=== PATIENT | female | born 1960 | race Asian ===

== ENCOUNTER 2024-11-08 11:59 | Outpatient (AMB) | payer OTHER, SELFPAY ==
--- NOTE | 2024-11-08 12:11 | A.OFFPC_ITS ---
Vital Signs 11/08/24 12:20 Height 5 ft 2 in Weight 167 lb BMI 30.5 BP 135/68 Blood Pressure Location Lt brachial Position Sitting Respiration 16 Pulse 95 Pulse Source Pulse Oximeter Temp 98.1 F Temp Source Oral Pulse Oximetry (%) 100 Oxygen Delivery Method Room Air Intake Visit Reasons: est care/requesting pe Intake Note: patient here for new patient visit Clinical Laboratory Technologist Required: Yes Clinical Laboratory Technologist Language: Brigitte Clinical Laboratory Technologist Name: [id number] Is last menstrual period known: No Post menopausal: No Patient : No Allergies No Known Allergies Allergy (Verified 11/08/24 12:30) Medication List - Last Reviewed 11/08/24 by Zoya Sena MA anastrozole 1 mg PO DAILY hydrochlorothiazide 25 mg PO DAILY levothyroxine (Tirosint) 112 mcg PO DAILY lisinopril 20 mg PO DAILY multivitamin (Daily-Kate tablet) 1 tab PO DAILY omega 7-fhb-ujr-fish oil 100-160-1,000 mg (Fish Oil) 2 caps PO DAILY Tobacco use date assessed: 11/08/24 Fall risk assessment: No Falls in past year Last assessed Fall Risk: 11/08/24 Dental Screening Dental Screen Date: 11/08/24 Did you have a dental visit in the last 12 months?: Yes Did you have a dental problem in the last 6 months where you did not have access to dental care?: No Was dental information given to patient?: Patient has dentist HPI HPI Comments History of Present Illness Details 64-year-old female Brigitte speaking, accom panied by her , presents to establish care. Prior PCP? - [facility], [facility] Last office visit - 07/2024 Last CPE/labs - 04/2023 Acute issue(s) - Reports bilateral hearing loss. Hearin g aid recommended by ENT but she could not afford them Past Medical History - Hypertension, hypothyroidism, left dorota ast cancer, no teeth to lower gum (wear denture), bilateral hearing loss Surgical History - Left breast surgery ([facility] 2 022) Family History - None Social History - Nonsmoker. Does not vape. Does not roberta blankenship. Denies recreational drug use - Has been making healthy dietary choice s (vegetarian), Walks regularly. Generally sleep well Health maintenance - Last eye exam was a year ago with Dr. Cruz. She will will follow up with Dr. Cruz in 04/2025. Encouraged sign a release for her PCP to obtain ophthalmology record - Last dental visit was 06/2024. She will find a new dentist for inplant to lower gum - Last Tdap was 3 years ago. Record not current available - She notes that she is up-to-date on th e flu vaccine - She is up-to-date on the shingles vacc ine. Record not currently available - She has not been vaccinated for PNA. E ncouraged to get vaccinated for for PNA at a local pharmacy - She has never had a Pap smear test and declines referral for Pap smear test. - Last mammogram was in 08/01/2024: Hetero geneously dense, Recommended mammogram in 6 months. Mammogram ordered - She has never had a colonoscopy. Decl reji colonoscopy. Cologuard ordered - She has never had a dexat dexa scan. D exa scan ordered Specialists - None [facility] Surgical History (Updated 11/08/24 @ 12:25 by Zoya Sena MA) History of breast surgery Social History Housing: House Patient Tobacco Use Status: Never used Tobacco e-Cigarette/Vaping Use: Never Used Second Hand Smoke Exposure: No service: No Current occupational status: unemployed Current occupational exposures/hazards: No Cognitive needs: No Hearing needs: No Vision needs: Yes Questionnaire PHQ-9 Over the last 2 weeks, how often have you been bothered by any of the following problems? 1. Little interest or pleasure in doing things: not at all 2. Feeling down, depressed, or hopeless: several days 3. Trouble falling or staying asleep, or sleeping too much: several days 4. Feeling tired or having little energy: several days 5. Poor appetite or overeating: several days 6. Feeling bad about yourself - or that you are a failure or have let yourself or your family down: several days 7. Trouble concentrating on things, such as reading the newspaper or watching television: nearly every day 8. Moving or speaking so slowly that other people could have noticed. Or the opposite - being so fidgety or restless that you have been moving around a lot more than usual: several days 9. Thoughts that you would be better off or of hurting yourself in some way: several days Total score: 10 Depression Screening Interpretation: Positive Depression Screening Done: Yes 24930 - PHQ-9 Billing: Yes Source: Developed by Drs. Benjamin Ruiz, Adriane Rosenthal, Aneudy Styles and colleagues, with an educational jennifer from [employer]. Thrive Questionnaire Date Thrive assessed: 11/08/24 I am a: Patient What is your living situation today?: I have a steady place to live Within the past 12 months, did the food you bought not last and you didn't have the money to get more?: Sometimes True Within the past 12 months, did you worry whether your food would run out before you got money to buy more?: Sometimes True Do you have trouble paying for medicines?: Yes Do you have trouble getting transportation to medical appointments?: Yes Do you have trouble paying your heating and electricity bill?: Yes Do you have trouble taking care of your child, family member or friend?: Yes Do you have trouble with day-to-day activities such as bathing, preparing meals, shopping, managing finances, etc.?: Yes Are you currently unemployed and looking for a job?: Yes Are you interested in more education?: No Please select the resources that you would like help with: Food, Paying for medicine, Utilities, Care for elder or disabled, Daily support and Job search/training THRIVE Score: 4 AUDIT C Alcohol Use Questionnaire (AUDIT-C) 1. How often do you have a drink containing alcohol?: Never 3. How often do you have six or more drinks on one occasion?: Never Total Score: 0 Score Reviewed/Action Taken: Yes MADI-7 AMB Questionnaire MADI-7 Date MADI - 7 assessed: 11/08/24 Feeling nervous, anxious, or on edge: 1 = Several days Not being able to stop or control worryin = Several days Worrying too much about different things: 1 = Several days Trouble relaxin = Several days Being so restless that it is hard to sit still: 1 = Several days Becoming easily annoyed or irritable: 1 = Several days Feeling afraid as if something awful might happen: 1 = Several days Total MADI-7 score (0-4 normal; 5-9 mild; 10-14 moderate; 15-21 severe): 7 Source: Developed by Drs. Benjamin Ruiz, Adriane Rosenthal, Aneudy Styles and colleagues, with an educational jennifer from [employer] MADI-7 Assessment Billing MADI-7 Assessment Tool: MADI-7 Assessment 10374 Review of Systems Const Details: Denies chills, Denies fatigue, Denies fever(s), Denies headache(s) and Denies weakness HEENT On reports bilateral hearing loss, Denies change in vision, Denies dizziness, Denies headache(s), Denies nasal congestion, Denies sinus pain, Denies sinus pressure and Denies sore throat Card Denies chest pain, Denies lightheadedness, Denies dyspnea and Denies other (palpitations) Resp Denies cough, Denies dyspnea and Denies wheezing GI Denies abdominal pain, Denies melena, Denies hematochezia, Denies change in bowel habits, Denies dyspepsia and Denies nausea Denies hematuria and Denies dysuria Musc Denies abnormal gait, Denies myalgias, Denies arthralgias, Denies numbness and Denies tingling Skin/Breast Denies rash, Denies unusual bruising and Denies wounds Neuro Denies abnormal gait, Denies dizziness, Denies headache(s), Denies memory loss, Denies numbness, Denies Sensory deficit (Neuro), Denies tingling and Denies weakness Psych Denies anxiety, Denies depression and Denies memory loss Endo Denies cold intolerance, Denies fatigue, Denies heat intolerance, Denies polydipsia and Denies polyuria Glenn/Lymph Denies easy bleeding and Denies easy bruising Aller/Immun Denies wheezing Physical exam (Primary Care) Vital Signs: Last Vital Signs Temp 98.1 F 11/08/24 12:20 Pulse 95 11/08/24 12:20 Resp 16 11/08/24 12:20 BP 135/68 11/08/24 12:20 Pulse Ox 100 11/08/24 12:20 Oxygen Delivery Method Room Air 11/08/24 12:20 BMI result Body Mass Index 30.5 Tobacco/Smoking Status: Tobacco use Status Tobacco use date assessed 11/08/24 11/08/24 12:23 Patient Tobacco Use Status Never used Tobacco 11/08/24 12:23 e-Cigarette/Vaping Use Never Used 11/08/24 12:23 PHQ-9: PHQ-9 Score PHQ-9: Total score 10 11/08/24 13:16 Depression Screening Interpretation: Positive Thrive Assessment: Date of Thrive Assessment Date Thrive assessed 11/08/24 11/08/24 12:38 Const Other: General: no acute distress, well developed, alert and awake Nutritional Appearance: well nourished Orientation/consciousness: patient oriented x3 HENWI Head: Yes normocephalic and Yes atraumatic Ears: Diminished hearing bilaterally. Impacted cerumen to both ear, occluding the TMs General nose exam: Normal external nose present and Normal nares present Mouth: Normal oral and palatal mucosa present and moist mucous membranes Teeth and gingiva: dentition normal. No teeth to lower gum, wears full bottom denture Throat: Yes oropharynx normal Eyes Pupils: Equal, round and reactive pupils present and Pupil accommodation reflex normal EOM: EOMs intact bilaterally Neck Neck: Yes normal visual inspection, Yes no lymphadenopathy and Yes trachea midline Thyroid: Thyroid normal Carotids: no bruits Lymphatic: no lymphadenopathy noted Chest Chest palpation & inspection: normal inspection of the chest Resp Effort & Inspection: normal respiratory effort Auscultation: clear to auscultation bilaterally Cardio Rate: regular rate Rhythm: regular rhythm Heart sounds: S1 normal heart sound present, S2 normal heart sound present, no gallops, no murmurs and no rubs Bruits: no abdominal aortic bruits and no carotid bruits GI Palpation (GI): No Abdominal aortic bruit present, Soft to palpation, nontender, No hepatosplenomegaly present and No Rebound tenderness present Auscultation: normal bowel sounds General: Yes no CVA tenderness Back/Spine/Pelvis Back: no CVA tenderness Cervical Spine: cervical ROM normal and No Cervical spine tenderness Thoracic/Lumbar Spine: thoraco-lumbar ROM normal, No pain with thoraco-lumbar ROM, No thoracic spinal tenderness and No lumbar spinal tenderness Skin General: warm and dry. Normal skin color. Normal skin turgor Lesions: no lesions Rashes: no rashes Trauma: no lacerations or abrasions Wounds: no wounds Nails: normal Neuro General: patient oriented x3, gait normal and CN's II-XI intact bilaterally Cranial nerves: Yes Equal, round and reactive pupils present Cognition (Neuro): normal cognition Gait exam (Neuro): Normal gait present Motor exam (neuro): 5/5 motor strength present throughout Sensory Exam: No Sensory deficit (Neuro) Deep tendon reflexes (DTR's): Right patellar reflex intensity grade: 2+ and Left patellar reflex intensity grade: 2+ Extrem General: Yes normal to inspection, No edema and No calf tenderness Psych Appearance: grossly normal Affect: normal affect Attitude: cooperative Thought process: Normal thought process present Coding Level of Care Code New Pt Level 4 (84082) New Pt Prev Care >65yr (35718) Diagnoses Normal physical examination, routine Z00.00 Hypertension I10 Hypothyroidism E03.9 Hearing loss of both ears H91.93 Impacted cerumen of both ears H61.23 Breast cancer screening by mammogram Z12.31 Colon cancer screening Z12.11 Age-related osteoporosis without current pathological fracture M81.0 Laboratory tests ordered as part of a complete physical exam (CPE) Z00.00 Additional Codes MADI-7 Assessment Billing - MADI-7 Assessment Tool: MADI-7 Assessment 81572 ([id number]) PHQ-9 - 04074 - PHQ-9 Billing: Yes ([id number]) Time Spent (min) 65 Assessment & Plan Assessment & Plan (1) Normal physical examination, routine: Code(s): Z00.00 - Encounter for general adult medical examination without abnormal findings Category: Medical Plan: No significant functional limitation. Continue current treatment regimen. Healthy diet and routine exercise encouraged. Perform lab work and follow-up for labs review and bilateral ear lavage. Return sooner with symptoms or concerns. Verbalized understanding and agreed with the plan. (2) Hypertension: Code(s): I10 - Essential (primary) hypertension Category: Medical Plan: Blood pressure is 134/68, within goal of less than 140/90. Continue current treatment regimen. Low-sodium diet encouraged. Blood pressure monitor/cuff ordered and encouraged to monitor blood pressure. Will continue to monitor. Verbalized understanding and agreed with the plan. (3) Hypothyroidism: Code(s): E03.9 - Hypothyroidism, unspecified Category: Medical Plan: Continue current treatment regimen. Will check TSH/T4 and make changes as needed. Verbalized understanding and agreed with the plan. (4) Hearing loss of both ears: Code(s): H91.93 - Unspecified hearing loss, bilateral Category: Medical Plan: Reports bilateral hearing loss. Hearing aid recommended by ENT but she could not afford them. Diminished hearing bilaterally. Impacted cerumen to both ear, occluding the TMs. Debrox ordered; advised to use as prescribed. Start using 4 days before next visit. Follow-up for bilateral ear lavage in 2 weeks. May refer to audiology if continued hearing loss following cerumen removal. Verbalized understanding and agreed with the plan. (5) Impacted cerumen of both ears: Code(s): H61.23 - Impacted cerumen, bilateral Category: Medical Plan: Plan as above. (6) Breast cancer screening by mammogram: Code(s): Z12.31 - Encounter for screening mammogram for malignant neoplasm of breast Category: Medical Plan: She has history of cancer of the left breast and on anastrozole 1 mg daily. Last mammogram was in 08/01/2024: Heterogeneously dense, Recommended mammogram in 6 months. Mammogram ordered. (7) Colon cancer screening: Code(s): Z12.11 - Encounter for screening for malignant neoplasm of colon Category: Medical Plan: She has never had a colonoscopy. Declines colonoscopy. Cologuard ordered. (8) Age-related osteoporosis without current pathological fracture: Code(s): M81.0 - Age-related osteoporosis without current pathological fracture Category: Medical Plan: She has never had a dexat dexa scan. Dexa scan ordered. (9) Laboratory tests ordered as part of a complete physical exam (CPE): Code(s): Z00.00 - Encounter for general adult medical examination without abnormal findings Category: Medical Plan: Fasting labs ordered as part of a complete physical exam. Advised to fast for at least 10 hours before getting labs drawn. May drink water Verbalized understanding and agreed with treatment plan. Plan Total time for this visit was 65 minutes. This include 50 minutes with patient, doing complete physical exam and chronic disease management/treatment, and 15 minutes reviewing, coordinating plan of care, and documenting. Orders: Orders Complete Blood Count Auto Diff Today Z00.00 - Encounter for general adult medical examination without abnormal findings Comprehensive [place]sey. Panel Fast Today Z00.00 - Encounter for general adult medical examination without abnormal findings Lipid Panel Today Z00.00 - Encounter for general adult medical examination without abnormal findings Microalbumin, Random (w Creat) Today Z00.00 - Encounter for general adult medical examination without abnormal findings Vitamin D 25-OH Total Today Z00.00 - Encounter for general adult medical examination without abnormal findings MM screening mammo BI 3 Months Z12.31 - Encounter for screening mammogram for malignant neoplasm of breast TSH reflex Free T4 Today Z00.00 - Encounter for general adult medical examination without abnormal findings UA CC w/rflx Micro + Cult Today Z00.00 - Encounter for general adult medical examination without abnormal findings XR DEXA axial skeleton Today M81.0 - Age-related osteoporosis without current pathological fracture Referrals Cologuard Test Z12.11 - Encounter for screening for malignant neoplasm of colon Medications: New carbamide peroxide 6.5% (Debrox) Instill in both ears 5 drps otic (ears) DAILY 15 mL 0RF 4 days miscellaneous medical supply 1 large BP monitor/cuff 1 ea 0RF I10 - Essential (primary) hypertension
[2024-11-08 12:20] VITALS: BP 135/68; PULSE 95; RESP 16; TEMP 36.7; O2SAT 100; BMI 30.5
== END 2024-11-08 13:41 | disposition home or self-care (01) ==
LOC: HO.HMCFM 11:59
PROVIDERS: PCP Nurse Practitioner Family; Visit Provider Nurse Practitioner Family
DX: Z00.00 Encounter for general adult medical examination without abnormal findings (principal); H61.23 Impacted cerumen, bilateral; I10 Essential (primary) hypertension; M81.0 Age-related osteoporosis without current pathological fracture; E03.9 Hypothyroidism, unspecified; Z12.31 Encounter for screening mammogram for malignant neoplasm of breast; Z12.11 Encounter for screening for malignant neoplasm of colon

== ENCOUNTER → 2024-11-08 11:59 | Outpatient (BNVA) | payer OTHER, SELFPAY | PROVIDERS: PCP Nurse Practitioner Family; Visit Provider Nurse Practitioner Family | DX: Z00.00 Encounter for general adult medical examination without abnormal findings (principal); I10 Essential (primary) hypertension; E03.9 Hypothyroidism, unspecified; H61.23 Impacted cerumen, bilateral; M81.0 Age-related osteoporosis without current pathological fracture | CPT/HCPCS: 96127; 99202; 99387 ==

== ENCOUNTER 2024-11-11 07:31 | Outpatient (REF) | payer OTHER, SELFPAY ==
[2024-11-11 11:26] LABS: Appearance Urine Clear; Glucose Urine UA Negative (Negative); PH 8.5 (5.0-9.0); Specific Gravity - Urine 1.015 (1.005-1.025); UMIC TRIGGER UACC YES
[2024-11-11 11:35] LABS: UACC Culture Trigger YES
[2024-11-11 11:48] LABS: MANUAL DIFF FLAG NO
[2024-11-11 11:51] LABS: Hematocrit 36.2 % (37.0-47.0); Hemoglobin 12.2 g/dl (12.0-16.0); Imm Gran Abs Auto 0.04 X10*3/uL (0.00-0.03); Imm Gran Pct Auto 0.5 % (0.0-0.4); Lymphocytes Absolute Auto 2.1 X10*3/uL (1.2-4.9); Mean Corpuscular HGB Conc 33.7 g/dl (31.0-35.0); Mean Corpuscular Hemoglobin 27.8 pg (27.0-33.0); Mean Corpuscular Volume 82.5 fL (80.0-98.0); NRBC Abs Auto 0.000 X10*3/uL (0.0-0.012); NRBC Pct Auto 0.0 /100WBC (0.0-0.2); Platelet Count 273 X10*3/uL (160-400); Red Blood Count 4.39 X10*6/uL (4.20-5.50); White Blood Count 7.8 X10*3/uL (4.8-10.8)
[2024-11-11 12:16] LABS: Microalbum/Creatinine Ratio Ur 7.0 ug/mg cr (<30)
[2024-11-11 13:07] LABS: Alanine Aminotransferase 18 U/L (0-31); Albumin Level 4.3 g/dL (3.5-5.0); Alkaline Phosphatase 98 U/L (39-117); Anion Gap 13 (12-20); Aspartate Amino Transferase 22 U/L (5-31); Blood Urea Nitrogen 14 mg/dL (9-16); Calcium 9.4 mg/dL (8.4-10.2); Carbon Dioxide 29 mmol/L (22-29); Chloride 104 mmol/L (96-108); Cholesterol 212 mg/dL (<200); Estimated Glomerular Filt Rate > 60; HDL Cholesterol 63 mg/dL (>40); Potassium 4.6 mmol/L (3.3-5.1); Sodium 141 mmol/L (135-145); Total Protein 7.2 g/dL (6.5-8.0); Triglycerides 88 mg/dL (<150)
== END 2024-11-11 07:32 | disposition home or self-care (01) ==
LOC: HO.WFDLDS 07:31
PROVIDERS: Visit Provider Nurse Practitioner Family
DX: Z00.00 Encounter for general adult medical examination without abnormal findings (principal); Z13.6 Encounter for screening for cardiovascular disorders
CPT/HCPCS: 36415; 80053; 80061; 81001; 82043; 82306; 82570; 84443; 85025; 87086

== ENCOUNTER 2024-11-26 12:57 | Outpatient (AMB) | payer OTHER, SELFPAY ==
--- NOTE | 2024-11-26 13:08 | MHC.PC.OV ---
Vital Signs 11/26/24 13:17 Height 5 ft 2 in Weight 166 lb 4 oz BMI 30.4 BP 139/64 Blood Pressure Location Lt brachial Position Sitting Respiration 16 Pulse 88 Pulse Source Pulse Oximeter Temp 98.7 F Temp Source Oral Pulse Oximetry (%) 100 Oxygen Delivery Method Room Air Intake Visit Reasons: 2 wks bilat ear lavage and labs review Intake Note: patient here for 2wks bilat ear lavage and lab review Senior Financial Accountant Required: Yes Senior Financial Accountant Language: Vale Senior Financial Accountant Name: nilay [id number] Information Interpreted: non-clinical & clinical Is last menstrual period known: No Post menopausal: No Patient : No Allergies No Known Allergies Allergy (Verified 11/26/24 13:51) Medication List - Last Reconciled 11/26/24 by Anabel Mackenzie CNP anastrozole 1 mg PO DAILY carbamide peroxide 6.5% (Debrox) 5 drps otic (ears) DAILY 4 days hydrochlorothiazide 25 mg PO DAILY levothyroxine (Tirosint) 112 mcg PO DAILY lisinopril 20 mg PO DAILY miscellaneous medical supply 1 large BP monitor/cuff multivitamin (Daily-Kate tablet) 1 tab PO DAILY omega 2-dyd-vub-fish oil 100-160-1,000 mg (Fish Oil) 2 caps PO DAILY Tobacco use date assessed: 11/08/24 Fall risk assessment: No Falls in past year Last assessed Fall Risk: 11/26/24 Dental Screening Dental Screen Date: 11/26/24 Did you have a dental visit in the last 12 months?: Yes Did you have a dental problem in the last 6 months where you did not have access to dental care?: No Was dental information given to patient?: Patient has dentist HPI HPI Comments History of Present Illness Details 64-year-old Brigitte speaking female, accompanied by her , presents for bilateral ear lavage and recent labs review follow-up. She admits to taking her medications as prescribed without adverse reactions. She notes that she has been making healthy lifestyle changes. No acute symptoms at this time. 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 [facility] Surgical History (Updated 11/08/24 @ 12:25 by Zoya Sena MA) History of breast surgery Social History Housing: House Patient Tobacco Use Status: Never used Tobacco e-Cigarette/Vaping Use: Never Used Second Hand Smoke Exposure: No service: No Current occupational status: unemployed Current occupational exposures/hazards: No Cognitive needs: No Hearing needs: No Vision needs: Yes Questionnaire Thrive Questionnaire Date Thrive assessed: 11/20/24 I am a: Patient What is your living situation today?: I have a steady place to live Within the past 12 months, did the food you bought not last and you didn't have the money to get more?: Often true Within the past 12 months, did you worry whether your food would run out before you got money to buy more?: Sometimes True Do you have trouble paying for medicines?: I choose not to answer this question Do you have trouble getting transportation to medical appointments?: I choose not to answer this question Do you have trouble paying your heating and electricity bill?: I choose not to answer this question Do you have trouble taking care of your child, family member or friend?: Yes Do you have trouble with day-to-day activities such as bathing, preparing meals, shopping, managing finances, etc.?: I choose not to answer this question Are you currently unemployed and looking for a job?: I choose not to answer this question Are you interested in more education?: No THRIVE Score: 2 AUDIT C Alcohol Use Questionnaire (AUDIT-C) 1. How often do you have a drink containing alcohol?: Never Total Score: 0 MADI-7 AMB Questionnaire MADI-7 Date MADI - 7 assessed: 11/08/24 Source: Developed by Drs. Benjamin Ruiz, Adriane Rosenthal, Aneudy Styles and colleagues, with an educational jennifer from [employer] Review of Systems Const Details: Const Denies chills, Denies fatigue, Denies fever(s), Denies headache(s) and Denies weakness ENT Reports as per HPI Card Denies chest pain, Denies lightheadedness, Denies dyspnea and Denies other (Palpitations) Resp Denies cough, Denies dyspnea, Denies wheezing and Denies other ( shortness of breath) GI Denies abdominal pain, Denies melena, Denies hematochezia, Denies change in bowel habits, Denies dyspepsia and Denies nausea Denies hematuria and Denies dysuria Musc Denies abnormal gait, Denies myalgias, Denies arthralgias, Denies numbness and Denies tingling Skin/Breast Denies rash, Denies unusual bruising and Denies wounds Neuro Denies abnormal gait, Denies dizziness, Denies headache(s), Denies memory loss, Denies numbness, Denies Sensory deficit (Neuro), Denies tingling and Denies weakness Psych Denies anxiety, Denies depression, Denies memory loss Endo Denies cold intolerance, Denies fatigue, Denies heat intolerance, Denies polydipsia and Denies polyuria Aller/Immun Denies wheezing Physical exam (Primary Care) Vital Signs: Last Vital Signs Temp 98.7 F 11/26/24 13:17 Pulse 88 11/26/24 13:17 Resp 16 11/26/24 13:17 BP 139/64 11/26/24 13:17 Pulse Ox 100 11/26/24 13:17 Oxygen Delivery Method Room Air 11/26/24 13:17 BMI result Body Mass Index 30.4 Tobacco/Smoking Status: Tobacco use Status Tobacco use date assessed 11/08/24 11/26/24 13:08 Patient Tobacco Use Status Never used Tobacco 11/26/24 13:08 e-Cigarette/Vaping Use Never Used 11/26/24 13:08 Thrive Assessment: Date of Thrive Assessment Date Thrive assessed 11/20/24 11/26/24 13:08 Const Other: General: no acute distress and well developed Nutritional Appearance: well nourished Orientation/consciousness: patient oriented x3 HENMT Impacted cerumen in both ears occluding the T[place]. [place] of bilaterally Eyes General: appearance normal, both eyes and all related structures Pupils: Equal, round and reactive pupils present EOM: EOMs intact bilaterally Resp Effort & Inspection: normal respiratory effort Auscultation: clear to auscultation bilaterally Cardio Rate: regular rate Rhythm: regular rhythm Heart sounds: S1 normal heart sound present, S2 normal heart sound present, no gallops, no murmurs and no rubs GI Palpation (GI): No Abdominal aortic bruit present, Soft to palpation, nontender, No hepatosplenomegaly present and No Rebound tenderness present Auscultation: normal bowel sounds General: Yes no CVA tenderness Back/Spine/Pelvis Back: no CVA tenderness Cervical Spine: cervical ROM normal and No Cervical spine tenderness Thoracic/Lumbar Spine: thoraco-lumbar ROM normal, No pain with thoraco-lumbar ROM, No thoracic spinal tenderness and No lumbar spinal tenderness Extrem General: Yes normal to inspection, No edema and No calf tenderness Skin General: warm and dry. Normal skin color. Normal skin turgor Neuro General: patient oriented x3, gait normal and no focal neuro deficit Cranial nerves: Yes Equal, round and reactive pupils present Cognition (Neuro): normal cognition Gait exam (Neuro): Normal gait present Sensory Exam: No Sensory deficit (Neuro) Psych Appearance: grossly normal Affect: normal affect Attitude: cooperative Thought process: Normal thought process present Coding Level of Care Code Est Pt Level 4 (46491) Diagnoses Impacted cerumen of both ears H61.23 Elevated fasting glucose R73.01 Hypercholesterolemia E78.00 Vitamin D deficiency E55.9 Assessment & Plan Assessment & Plan (1) Impacted cerumen of both ears: Code(s): H61.23 - Impacted cerumen, bilateral Category: Medical Plan: Significant cerumen irrigated from both ears. Normal TM bilaterally. Reports hearing improvement after the procedure. Advised to follow-up as needed. Verbalized understanding and agreed with the plan. (2) Elevated fasting glucose: Code(s): R73.01 - Impaired fasting glucose Category: Medical Plan: Recent fasting glucose is slightly elevated, 103. Healthy diet encouraged. Will recheck fasting glucose and make changes as needed. Verbalized understanding and agreed with the plan. (3) Hypercholesterolemia: Code(s): E78.00 - Pure hypercholesterolemia, unspecified Category: Medical Plan: Recent total cholesterol and LDL levels the slightly elevated, 212 and 132 respectively. Advised to limit foods high in saturated fat and avoid foods high in trans fat. Routine exercise encouraged. Fast for 10-12 hours, may drink water, and performed lipid panel blood work 2-3 days before next visit. Follow-up for telehealth visit in 2 months. Verbalized understanding and agreed with the plan. (4) Vitamin D deficiency: Code(s): E55.9 - Vitamin D deficiency, unspecified Category: Medical Plan: Recent vitamin-D level is slightly low, 28.4. Vitamin D3 1000 units daily ordered; advised to take as prescribed. Will recheck vitamin-D level in 2 months. Verbalized understanding and agreed with the plan. Orders: Orders Glucose Fasting Today R73.01 - Impaired fasting glucose Lipid Panel 2 Months E78.00 - Pure hypercholesterolemia, unspecified Vitamin D 25-OH Total 2 Months E55.9 - Vitamin D deficiency, unspecified Medications: New cholecalciferol (vitamin D3) 25 mcg PO DAILY 90 tabs 3RF 90 days
[2024-11-26 13:17] VITALS: BP 139/64; PULSE 88; RESP 16; TEMP 37.1; O2SAT 100; BMI 30.4
== END 2024-11-26 14:19 | disposition home or self-care (01) ==
LOC: HO.HMCFM 12:58
PROVIDERS: PCP Nurse Practitioner Family; Visit Provider Nurse Practitioner Family
DX: H61.23 Impacted cerumen, bilateral (principal); R73.01 Impaired fasting glucose; E78.00 Pure hypercholesterolemia, unspecified; E55.9 Vitamin D deficiency, unspecified

== ENCOUNTER → 2024-11-26 12:57 | Outpatient (BNVA) | payer OTHER, SELFPAY | PROVIDERS: PCP Nurse Practitioner Family; Visit Provider Nurse Practitioner Family | DX: H61.23 Impacted cerumen, bilateral (principal); R73.01 Impaired fasting glucose; E78.00 Pure hypercholesterolemia, unspecified; E55.9 Vitamin D deficiency, unspecified | CPT/HCPCS: 99212 ==

== ENCOUNTER 2025-01-21 11:12 | Outpatient (REF) | payer OTHER, SELFPAY | END 2025-01-21 11:13 | disposition home or self-care (01) | LOC: HO.MAMMO 11:12 | PROVIDERS: PCP Nurse Practitioner Family; Visit Provider Nurse Practitioner Family | DX: Z13.89 Encounter for screening for other disorder (principal) ==

== ENCOUNTER 2025-01-22 07:47 | Outpatient (REF) | payer OTHER, SELFPAY ==
[2025-01-22 12:27] LABS: Cholesterol 179 mg/dL (<200); HDL Cholesterol 51 mg/dL (>40); Triglycerides 115 mg/dL (<150)
== END 2025-01-22 07:48 | disposition home or self-care (01) ==
LOC: HO.WFDLDS 07:47
PROVIDERS: Visit Provider Nurse Practitioner Family
DX: R73.01 Impaired fasting glucose (principal); E78.00 Pure hypercholesterolemia, unspecified; E55.9 Vitamin D deficiency, unspecified
CPT/HCPCS: 36415; 80061; 82306; 82947

== ENCOUNTER 2025-01-28 08:09 | Outpatient (AMB) | payer OTHER, SELFPAY ==
--- NOTE | 2025-01-28 08:11 | MHC.PC.OV ---
Vital Signs 01/28/25 08:28 01/28/25 08:44 Height 5 ft 2 in Weight 170 lb 8 oz BMI 31.2 BP 149/68 H 120/70 Blood Pressure Location Rt brachial Rt brachial Position Sitting Sitting Respiration 16 Pulse 81 Pulse Source Pulse Oximeter Temp 97.4 F Temp Source Oral Pulse Oximetry (%) 100 Oxygen Delivery Method Room Air Intake Visit Reasons: 2 mos HTN, high chol vit d def, alex fbs Intake Note: patient here for 2 month follow up on HTN, highchol, vit d def and alex fbs [employer] Of [employer] Patrol Required: Yes Chief Of [employer] Name: refused w/daughter in-law Information Interpreted: non-clinical & clinical Accompanied by: Daughter Is last menstrual period known: No Post menopausal: No Patient : No Allergies No Known Allergies Allergy (Verified 01/28/25 08:41) Medication List - Last Reconciled 01/28/25 by Anabel Mackenzie CNP anastrozole 1 mg PO DAILY carbamide peroxide 6.5% (Debrox) 5 drps otic (ears) DAILY 4 days cholecalciferol (vitamin D3) 25 mcg PO DAILY 90 days hydrochlorothiazide 25 mg PO DAILY levothyroxine (Tirosint) 112 mcg PO DAILY lisinopril 20 mg PO DAILY miscellaneous medical supply 1 large BP monitor/cuff multivitamin (Daily-Kate tablet) 1 tab PO DAILY omega 5-zlh-fcn-fish oil 100-160-1,000 mg (Fish Oil) 2 caps PO DAILY Tobacco use date assessed: 01/28/25 Fall risk assessment: No Falls in past year Last assessed Fall Risk: 01/28/25 Dental Screening Dental Screen Date: 01/28/25 Did you have a dental visit in the last 12 months?: Yes Did you have a dental problem in the last 6 months where you did not have access to dental care?: No Was dental information given to patient?: Patient has dentist HPI HPI Comments History of Present Illness Details 64-year-old Brigitte speaking female, accompanied by her [id number], presents for hypertension, hypercholesterolemia, elevated fasting glucose, and vitamin-D deficiency follow-up. She admits to taking her medications as prescribed without adverse reactions. She notes that she has been making healthy lifestyle changes. Reports intermittent pain to her right lower back pain which started a month ago. The pain intensifies with standing and walking, and resolves with sitting down. She is unable to describe the pain. Tylenol provides relief for 2 days. Denies fall, injury, or trauma. She had surgery of her lower back 10-15 years ago in [place]. Interpretation by the patient's daughter in-law per patient's preference. [facility] Surgical History (Updated 11/08/24 @ 12:25 by DAMARI Harvey) History of breast surgery Social History Housing: House Patient Tobacco Use Status: Never used Tobacco e-Cigarette/Vaping Use: Never Used Second Hand Smoke Exposure: No service: No Current occupational status: unemployed Current occupational exposures/hazards: No Cognitive needs: No Hearing needs: No Vision needs: Yes Questionnaire Thrive Questionnaire Date Thrive assessed: 11/20/24 I am a: Patient What is your living situation today?: I have a steady place to live Within the past 12 months, did the food you bought not last and you didn't have the money to get more?: Often true Within the past 12 months, did you worry whether your food would run out before you got money to buy more?: Sometimes True Do you have trouble paying for medicines?: I choose not to answer this question Do you have trouble getting transportation to medical appointments?: I choose not to answer this question Do you have trouble paying your heating and electricity bill?: I choose not to answer this question Do you have trouble taking care of your child, family member or friend?: Yes Do you have trouble with day-to-day activities such as bathing, preparing meals, shopping, managing finances, etc.?: I choose not to answer this question Are you currently unemployed and looking for a job?: I choose not to answer this question Are you interested in more education?: No THRIVE Score: 2 MADI-7 AMB Questionnaire MADI-7 Date AMDI - 7 assessed: 11/08/24 Feeling nervous, anxious, or on edge: 1 = Several days Not being able to stop or control worryin = Several days Worrying too much about different things: 2 = More than half the days Trouble relaxin = Several days Being so restless that it is hard to sit still: 1 = Several days Becoming easily annoyed or irritable: 1 = Several days Feeling afraid as if something awful might happen: 1 = Several days Total MADI-7 score (0-4 normal; 5-9 mild; 10-14 moderate; 15-21 severe): 8 Source: Developed by Drs. Benjamin Ruiz, Adriane Rosenthal, Aneudy Styles and colleagues, with an educational jennifer from [employer]. Review of Systems Const Details: Const Denies chills, Denies fatigue, Denies fever(s), Denies headache(s) and Denies weakness ENT Denies dizziness and Denies headache(s) Card Denies chest pain, Denies lightheadedness, Denies dyspnea and Denies other (Palpitations) Resp Denies cough, Denies dyspnea, Denies wheezing and Denies other ( shortness of breath) GI Denies abdominal pain, Denies melena, Denies hematochezia, Denies change in bowel habits, Denies dyspepsia and Denies nausea Denies hematuria and Denies dysuria Musc Reports right-sided low back pain, Denies abnormal gait, Denies numbness and Denies tingling Skin/Breast Denies rash, Denies unusual bruising and Denies wounds Neuro Denies abnormal gait, Denies dizziness, Denies headache(s), Denies memory loss, Denies numbness, Denies Sensory deficit (Neuro), Denies tingling and Denies weakness Psych Denies anxiety, Denies depression, Denies memory loss Endo Denies cold intolerance, Denies fatigue, Denies heat intolerance, Denies polydipsia and Denies polyuria Aller/Immun Denies wheezing Physical exam (Primary Care) Tobacco/Smoking Status: Tobacco use Status Tobacco use date assessed 11/08/24 01/28/25 08:12 Patient Tobacco Use Status Never used Tobacco 01/28/25 08:12 e-Cigarette/Vaping Use Never Used 01/28/25 08:12 Thrive Assessment: Date of Thrive Assessment Date Thrive assessed 11/20/24 01/28/25 08:12 Const Other: General: no acute distress and well developed Nutritional Appearance: well nourished Orientation/consciousness: patient oriented x3 HENMT Head: Yes normocephalic and Yes atraumatic Eyes General: appearance normal, both eyes and all related structures Pupils: Equal, round and reactive pupils present EOM: EOMs intact bilaterally Resp Effort & Inspection: normal respiratory effort Auscultation: clear to auscultation bilaterally Cardio Rate: regular rate Rhythm: regular rhythm Heart sounds: S1 normal heart sound present, S2 normal heart sound present, no gallops, no murmurs and no rubs GI Palpation (GI): No Abdominal aortic bruit present, Soft to palpation, nontender, No hepatosplenomegaly present and No Rebound tenderness present Auscultation: normal bowel sounds General: Yes no CVA tenderness Back/Spine/Pelvis Back: no CVA tenderness Cervical Spine: cervical ROM normal and No Cervical spine tenderness Thoracic/Lumbar Spine: thoraco-lumbar ROM normal, No pain with thoraco-lumbar ROM, No thoracic spinal tenderness and No lumbar spinal tenderness Right-sided lower back tenderness with palpation, no overt injury or trauma Extrem General: Yes normal to inspection, No edema and No calf tenderness Skin General: warm and dry. Normal skin color. Normal skin turgor Neuro General: patient oriented x3, gait normal and no focal neuro deficit Cranial nerves: Yes Equal, round and reactive pupils present Cognition (Neuro): normal cognition Gait exam (Neuro): Normal gait present Sensory Exam: No Sensory deficit (Neuro) Psych Appearance: grossly normal Affect: normal affect Attitude: cooperative Thought process: Normal thought process present Coding Level of Care Code Est Pt Level 4 (57630) Diagnoses Hypertension I10 Hypercholesterolemia E78.00 Elevated fasting glucose R73.01 Vitamin D deficiency E55.9 Low back pain M54.50 Assessment & Plan Assessment & Plan (1) Hypertension: Code(s): I10 - Essential (primary) hypertension Category: Medical Plan: Resting blood pressure is 120/70, within goal of less than 140/90. Continue current treatment regimen. Low-sodium diet encouraged. Follow-up in 3 months or sooner with symptoms or concerns. Verbalized understanding and agreed with the plan. (2) Hypercholesterolemia: Code(s): E78.00 - Pure hypercholesterolemia, unspecified Category: Medical Plan: Recent LDL level is slightly elevated, 105. Triglycerides, total cholesterol, and HDL levels are normal. Advised to limit foods high in saturated fat and avoid foods high in trans fat. Routine exercise encouraged. Will monitor lipid panel level annually or if clinically indicated. Verbalized understanding and agreed with the plan. (3) Elevated fasting glucose: Code(s): R73.01 - Impaired fasting glucose Category: Medical Plan: Recent fasting glucose is normal, 96. Healthy diet and routine exercise encouraged. Will monitor fasting glucose annually or if clinically indicated. Verbalized understanding and agreed with the plan. (4) Vitamin D deficiency: Code(s): E55.9 - Vitamin D deficiency, unspecified Category: Medical Plan: Recent vitamin-D level is normal, 33.5. Continue current treatment regimen. Will monitor vitamin-D level annually or if clinically indicated. Verbalized understanding and agreed with the plan. (5) Low back pain: Code(s): M54.50 - Low back pain, unspecified Category: Medical Plan: Right-sided lower back tenderness with palpation, no overt injury or trauma. No lumbar spine tenderness. Pain is likely muscular. Naproxen and cyclobenzaprine as prescribed; instructed on the risks, benefits, and potential adverse reactions of the medications. Warm/cool compresses encouraged. Avoid prolonged standing or walking. Follow-up with worsening or new symptoms. Verbalized understanding and agreed with the plan. Medications: New naproxen Take with food 500 mg PO BID PRN 30 tabs 0RF pain cyclobenzaprine 5 mg PO BID PRN 20 tabs 0RF muscle spasm
[2025-01-28 08:28] VITALS: BP 149/68; PULSE 81; RESP 16; TEMP 36.3; O2SAT 100; BMI 31.2
[2025-01-28 08:44] VITALS: BP 120/70
== END 2025-01-28 08:58 | disposition home or self-care (01) ==
LOC: HO.HMCFM 08:09
PROVIDERS: PCP Nurse Practitioner Family; Visit Provider Nurse Practitioner Family
DX: I10 Essential (primary) hypertension (principal); E78.00 Pure hypercholesterolemia, unspecified; R73.01 Impaired fasting glucose; E55.9 Vitamin D deficiency, unspecified; M54.50 Low back pain, unspecified

== ENCOUNTER → 2025-01-28 08:09 | Outpatient (BNVA) | payer OTHER, SELFPAY | PROVIDERS: PCP Nurse Practitioner Family; Visit Provider Nurse Practitioner Family | DX: I10 Essential (primary) hypertension (principal); E78.00 Pure hypercholesterolemia, unspecified; R73.01 Impaired fasting glucose; E55.9 Vitamin D deficiency, unspecified; M54.50 Low back pain, unspecified | CPT/HCPCS: 99212 ==

== ENCOUNTER 2025-02-28 13:11 | Outpatient (REF) | payer OTHER, SELFPAY ==
--- NOTE | ~2025-02-28 | MM_ITS ---
EXAMINATION: DXA BONE DENSITY AXIAL HISTORY: M81.0 - Age-related osteoporosis without current pathological fracture TECHNIQUE: CHROMAom Dual energy absorptiometry (DEXA) of the lumbar spine, total left hip, and femoral neck was performed. COMPARISON: There are no prior studies for comparison. FINDINGS: The bone mineral density of the lumbar spine is 1.216 g/cm2, corresponding to a T-score of 0.3, and a Z-score of 1.3. This is indicative of normal bone mineral density. The bone mineral density of the left total hip is 1.006 g/cm2, corresponding to a T-score of 0.0, and a Z-score of 0.7. This is indicative of normal bone mineral density. The bone mineral density of the left femoral neck is 0.931 g/cm2, corresponding to a T-score of -0.8, and a Z-score of 0.3. This is indicative of normal bone mineral density. FRACTURE RISK: The FRAX index suggests a risk of major osteoporotic fracture of 3.9%, and of hip fracture 0.2%. MM/XR DEXA axial skeleton IMPRESSION: Based on bone mineral density, and according to World Health Organization (WHO) criteria, the diagnosis is consistent with normal bone mineral density. Statistically, 68% of repeat scans fall within 1 SD (+/- 0.010 g/cm2 for AP spine L1-L4) and 1 SD (+/- 0.012 g/cm2 for femur total) FRAX is a trademark of the [employer]'s [employer] for Metabolic Bone Disease, a World Health Organization (WHO) Collaborating Center. Electronically signed by: Benjamin Norton MD 02/28/2025 01:58 PM [facility]
== END 2025-02-28 13:12 | disposition home or self-care (01) ==
LOC: HO.MAMMO 13:11
PROVIDERS: PCP Nurse Practitioner Family; Visit Provider Nurse Practitioner Family
DX: M81.0 Age-related osteoporosis without current pathological fracture (principal)
CPT/HCPCS: 77080

== ENCOUNTER → 2025-02-28 14:00 | Outpatient (BNV) | payer OTHER, SELFPAY | PROVIDERS: PCP Nurse Practitioner Family; Visit Provider Radiology Diagnostic Radiology | DX: E28.39 Other primary ovarian failure (principal) | CPT/HCPCS: 77080 ==

== ENCOUNTER 2025-03-07 14:39 | Outpatient (REF) | payer OTHER, SELFPAY ==
[2025-03-10 07:13] LABS: TS Negative Control Passed; TS Panel A 4; TS Panel B 5; TS Positive Control Passed; TSpotTB Borderline (Negative)
== END 2025-03-07 14:40 | disposition home or self-care (01) ==
LOC: HO.WFDLDS 14:39
PROVIDERS: Visit Provider Nurse Practitioner Family
DX: Z11.1 Encounter for screening for respiratory tuberculosis (principal)
CPT/HCPCS: 36415; 86481

== ENCOUNTER 2025-03-17 14:40 | Outpatient (REF) | payer OTHER, SELFPAY ==
--- NOTE | ~2025-03-17 | XR_ITS ---
EXAMINATION: XR CHEST 2 VIEWS HISTORY: R76.11 - Nonspecific reaction to tuberculin skin test without active TB... COMPARISON: There are no prior studies available for comparison. FINDINGS: PA and lateral views of the chest are submitted. There are low lung volumes. The lungs are clear. There is no pleural effusion, pneumothorax, or pulmonary vascular congestion. The heart is likely normal in size given the degree of inspiration. The bones are intact. XR/XR chest 2V IMPRESSION: Low lung volumes. The lungs are clear. Electronically signed by: Benjamin Norton MD 03/17/2025 03:11 PM [facility]
== END 2025-03-17 14:41 ==
LOC: HO.XRAY 14:40
PROVIDERS: PCP Nurse Practitioner Family; Visit Provider Nurse Practitioner Family
DX: R76.11 Nonspecific reaction to tuberculin skin test without active tuberculosis (principal)
CPT/HCPCS: 71046

== ENCOUNTER → 2025-03-17 14:44 | Outpatient (BNV) | payer OTHER, SELFPAY | PROVIDERS: PCP Nurse Practitioner Family; Visit Provider Radiology Diagnostic Radiology | DX: J98.4 Other disorders of lung (principal) | CPT/HCPCS: 71046 ==